=== PATIENT | male | born 1955 | race Caucasian/White ===

== ENCOUNTER → 2020-11-15 12:56 | Outpatient (BNVA) | payer BC, SELFPAY | PROVIDERS: PCP Internal Medicine; Visit Provider Urology | DX: E29.1 Testicular hypofunction (principal); C67.9 Malignant neoplasm of bladder, unspecified; N52.9 Male erectile dysfunction, unspecified | CPT/HCPCS: 52000; 81002 ==

== ENCOUNTER 2021-05-19 10:38 | Outpatient (REF) | payer BC, SELFPAY ==
[2021-05-19 17:24] LABS: Urine Cytology See Pathology rpt
== END 2021-05-19 10:39 | disposition home or self-care (01) ==
LOC: HO.LAB 10:38
PROVIDERS: PCP Internal Medicine; Visit Provider Urology
DX: C67.9 Malignant neoplasm of bladder, unspecified (principal); E29.1 Testicular hypofunction; R31.9 Hematuria, unspecified; N52.9 Male erectile dysfunction, unspecified; F17.200 Nicotine dependence, unspecified, uncomplicated
CPT/HCPCS: 52000; 88112

== ENCOUNTER 2021-12-05 15:03 | Outpatient (REF) | payer BC, SELFPAY ==
[2021-12-05 16:16] LABS: Urine Cytology See Pathology rpt
== END 2021-12-05 15:04 | disposition home or self-care (01) ==
LOC: HO.LAB 15:03
PROVIDERS: PCP Internal Medicine; Visit Provider Urology
DX: C67.9 Malignant neoplasm of bladder, unspecified (principal); N52.9 Male erectile dysfunction, unspecified; E29.1 Testicular hypofunction
CPT/HCPCS: 52000; 88112

== ENCOUNTER → 2022-11-16 15:01 | Outpatient (BNVA) | payer BC, SELFPAY | PROVIDERS: PCP Internal Medicine; Visit Provider Urology | DX: Z13.89 Encounter for screening for other disorder (principal) ==

== ENCOUNTER 2023-07-10 12:43 | Outpatient (AMB) | payer MEDICARE, BC, SELFPAY ==
--- NOTE | 2023-07-10 12:43 | MHC.OFFVIS ---
Intake Intake Visit Reasons: Labs- follow up Intake Note: Patient is Present for Telephone Follow Up Urology Med: Sildenafil, Tamsulosin, Testosterone Antibiotic Allergy: none Blood Thinner: none Allergies No Known Allergies [No Known Allergies*] Allergy (Verified 11/16/22 15:02) Medication List - Last Reconciled 07/10/23 by Vishal Ashton MD amoxicillin-pot clavulanate 875-125 mg 1 tab PO BID buprenorphine-naloxone 2-0.5 mg 1 mg sublingual DAILY carvedilol 6.25 mg PO BID clonidine HCl 0.2 mg PO BEDTIME fluticasone furoate-vilanterol 100-25 mcg/dose ea inhalation furosemide 20 mg PO DAILY glipizide ER 10 mg PO DAILY ipratropium-albuterol 20-100 mcg/actuation (Combivent Respimat) 1 puff inhalation QID lidocaine 5% 1 patch topical DAILY metformin ER 750 mg PO BID pramipexole 0.125 mg PO TID PRN sildenafil 100 mg PO DAILY PRN 30 days sulfamethoxazole-trimethoprim 800-160 mg 1 tab PO BID tamsulosin 0.4 mg PO DAILY testosterone enanthate 100 mg (0.5 mL) subcut QWEEK 4 weeks vedolizumab (Entyvio) mg IV HPI HPI Comments History of Present Illness Details Jan CASTILLO is a very pleasant male. He is a patient of Dr Ruvalcaba. He is seen for the following urologic conditions. - hypogonadism - bladder cancer - erectile dysfunction Telemedicine Evaluation 15 min Consultation [employer] attempted Has not used testosterone since June Lab work stable Refilled T and sildenafil Hypogonadism: Lab work low T compared to prior Continue with replacement Prescriptions provided Increased T to 100 mg injection He presents today for further evaluation and followup of his hypogonadism. Initial symptoms include erectile dysfunction Yes decreased libido Yes change in mood/depression Yes in muscle size/strength Yes increased fatigue/malaise Yes increased abdominal fat No tender breasts/gynecomastia No hair loss No osteopenia No The onset of symptoms has been gradual. Laboratory results 04/20 T 102 repeat T 65 07/21 T 440 10/22 T 607 PSA 1.2. - 10/23 T 750, PSA 1.2 - 05/23 T 191, PSA 1.2, 11/22 T 574 P 1.00, 05/25 T 119 P 1.2 Bladder Cancer: Initial diagnosis January 2017 - T1 low-grade with 6 weeks BCG induction Bladder cancer was initially diagnosed incidentally - CT scan with Dr Ruvalcaba 11/30/16 - had persistent microhematuria for a number of years. Bladder intervention(s) performed 02/16 , TURBT, T1 invades subepthium, Low Grade , BCG induction 6 weeks. Recurrence Risk per EORTC Intermediate Risk Bladder cancer risk factors pelvic radiation No Organic Solvent exposure Yes family history of bladder cancer No chronic cystitis No prior chemotherapy with cyclophosphamide No hair dye exposure No smoking Yes 50 yr ppd use of pioglitazone No Prior Cystoscopy 07/19 calcification on right side area 10/20 well-healing on right side 10/21 NAD, 04/20 NAD, 10/22 NAD, 04/21 NAD, 11/20 NAD, 05/23 NAD, 12/22 NAD Prior Cytology 02/16 , Atypia suspicious for malignancy 07/19 , Negative for malignancy 10/20 , Negative for malignancy 10/22 NAD, 05/[address] scan with contrast 11/30/16 small lesion in bladder. Planned treatment surveillance protocol - yearly cystoscopy Erectile Dysfunction Sildenafil 100 mg effective Review of Systems Const All systems reviewed & are unremarkable except as noted in HPI and below Reports no additional complaints Resp Reports no additional complaints GI Reports no additional complaints Reports as per HPI Musc Reports no additional complaints Physical Exam Telemedicine evaluation Appropriate responses Regular breathing rate and rhythm HEENT Head: Yes normal to inspection Ears: hearing grossly normal bilaterally Eyes General: appearance normal, both eyes and all related structures Neck Neck: Yes normal visual inspection Chest Chest palpation & inspection: normal inspection of the chest Resp Effort & Inspection: normal respiratory effort and able to speak in complete sentences Assessment & Plan Assessment & Plan (1) Bladder cancer: Comment: 2016 low-grade, intermediate risk completed BCG induction Code(s): C67.9 - Malignant neoplasm of bladder, unspecified Qualifiers: Bladder location: unspecified site Qualified Code(s): C67.9 - Malignant neoplasm of bladder, unspecified (2) Erectile dysfunction: Code(s): N52.9 - Male erectile dysfunction, unspecified Qualifiers: Erectile dysfunction type: vasculogenic Vasculogenic erectile dysfunction type: due to arterial insufficiency Qualified Code(s): N52.01 - Erectile dysfunction due to arterial insufficiency (3) Hypogonadism in male: Code(s): E29.1 - Testicular hypofunction Plan 6m f/u labs and cystoscopy Orders: Orders Prostate Specific Antigen 6 Months E29.1 - Testicular hypofunction Testosterone, Total 6 Months E29.1 - Testicular hypofunction Complete Blood Count no Diff 6 Months E29.1 - Testicular hypofunction Medications: Refilled testosterone enanthate 100 mg (0.5 mL) subcut QWEEK 2 mL 5RF 4 weeks E29.1 - Testicular hypofunction sildenafil administer 60 minutes before intended activity 100 mg PO DAILY PRN 30 tabs 1RF sexual activity 30 days N52.9 - Male erectile dysfunction, unspecified Patient Instructions: Imaging studies, laboratory and physical exam results were discussed and reviewed in detail. No major barriers to patient understanding were identified. An opportunity to ask questions regarding the treatment plan was provided. All questions were answered. The patient expressed understanding and agreement with the above treatment plan. The patient is aware they should contact our office by phone for worsening of their current condition or the appearance of new urologic symptoms. Compliance is encouraged with any medications and followup testing that is ordered. It is a privilege to participate in the urologic care of your patient. If you have any questions or concerns regarding treatment for the above conditions, or other urologic issues, please do not hesitate to contact me. The office telephone contact is [phone]. This note is constructed using voice recognition software. While every effort has been made to ensure accuracy application support administrator errors may have been included. Yours sincerely, Dr Vishal Ashton MD, [facility] - Urology Providers of Expert, Compassionate Care for the Genitourinary System Telehealth Telehealth Location of provider rendering services: practice address Location of patient: address on file Patient Identification confirmed using: Name, : Yes Telehealth method: video Patient verbally consented to treatment: Yes Patient verbally consented to billing insurance company: Yes Patient informed of any privacy concerns related to visit: Yes Coding Level of Care Code Tele Est Pt Level 3 (78806) Diagnoses Malignant neoplasm of urinary bladder, unspecified site C67.9 Bladder location: unspecified site Erectile dysfunction due to arterial insufficiency N52.01 Erectile dysfunction type: vasculogenic Vasculogenic erectile dysfunction 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
== END 2023-07-10 14:05 | disposition home or self-care (01) ==
LOC: HO.HUSH 12:43
PROVIDERS: PCP Internal Medicine; Visit Provider Urology
DX: C67.9 Malignant neoplasm of bladder, unspecified (principal); N52.01 Erectile dysfunction due to arterial insufficiency; E29.1 Testicular hypofunction
CPT/HCPCS: 99213

== ENCOUNTER → 2023-07-10 12:43 | Outpatient (BNVA) | payer BC, SELFPAY | PROVIDERS: PCP Internal Medicine; Visit Provider Urology ==